=== PATIENT | female | born 1940 | race Caucasian/White ===

== ENCOUNTER 2017-07-12 16:57 | Emergency (ER) | payer MEDICARE ==
[2017-07-12 17:23] VITALS: BP 159/69
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
--- NOTE | 2017-07-12 18:41 | RAD ---
INDICATION: Right-sided abdominal pain COMPARISON: Similar radiograph May 29, 2011 TECHNIQUE: 2 views the abdomen were obtained. FINDINGS: There are no acute bony or soft tissue abnormalities. The bowel gas pattern is normal. There is a moderate amount of stool overlying the renal shadows. There are no obvious coarse calcifications overlying the expected location of the bilateral collecting systems or ureters. Surgical clips in the bilateral pelvis are most consistent with tubal ligation. IMPRESSION:Normal KUB.
--- NOTE | 2017-07-15 07:26 | UC ---
Progress - Progress Note Progress Note: RN to call pt. Preliminary urine cx + staphylococcus aureus. Per Urgent care notes 07/12/17 (Dr. Ontiveros), pt was discharged to the ED. There are no records indicating that she went to [facility] (although she may have gone to outlying ED such as [place]). As such, we are unable to see w/u, coa / tx plan. RN to call pt to ensure that she received w/u. May need abx based on prelim cx but final cx (and sens) pending. RN to call pt, check condition, see if she is taking abx. RN to confirm pcp; and fax prelim and final cx (when available) reports to pcp, in order to keep in the loop.
== END 2017-07-12 18:50 | disposition short-term general hospital (02) ==
LOC: UCCORT 16:57
DX: R10.31 Right lower quadrant pain (principal); R42 Dizziness and giddiness; M25.519 Pain in unspecified shoulder
CPT/HCPCS: 74000; 81003; 87077; 87086; 87186; 93005; 99212; G0463